=== PATIENT | female | born 1955 | race Caucasian/White ===

== ENCOUNTER → 2021-04-12 | Outpatient (CLI) | payer BC ==
[~2021-04-12] MED LIST: AMITRIPTYLINE H25 M2; ATENOLOL 50MG T50 M1; B SUPPLEMENT; NAPROSYN500 MG; NOLVADEX20 MG
== END ==
LOC: SJCVCIMAG 13:34
PROVIDERS: ATTEND Internal Medicine
DX: I08.8 Other rheumatic multiple valve diseases (principal); Z79.899 Other long term (current) drug therapy